=== PATIENT | female | born 1980 | race Caucasian/White ===

== ENCOUNTER → 2016-12-21 | Outpatient (REF) | payer OTHER ==
[~2016-12-21] MED LIST: IBUP200C PO; MOM30SS PO; PRENATAL VITAMIN PO
== END ==
LOC: M LAB REF 10:02
PROVIDERS: ATTEND Advanced Practice Midwife
DX: Z12.4 Encounter for screening for malignant neoplasm of cervix (principal); R87.610 Atypical squamous cells of undetermined significance on cytologic smear of cervix (ASC-US)

== ENCOUNTER → 2018-11-06 | Outpatient (REF) | payer OTHER ==
[~2018-11-06] MED LIST changes: -IBUP200C PO; +IBUP200C25 PO
[2018-11-08 14:14] LABS: HPV HYBRID CAPTURE II Negative (Negative)
== END ==
LOC: M LAB REF 13:07
PROVIDERS: ATTEND Advanced Practice Midwife
DX: Z12.4 Encounter for screening for malignant neoplasm of cervix (principal); Z11.51 Encounter for screening for human papillomavirus (HPV)
CPT/HCPCS: 87624; G0123

== ENCOUNTER → 2021-05-15 | Outpatient (CLI) | payer OTHER | LOC: M LAB 01:58 | PROVIDERS: ATTEND Family Medicine | DX: U07.1 COVID-19 (principal) ==

== ENCOUNTER → 2022-01-26 | Outpatient (REF) | payer BC | LOC: M SFHCWAGY 13:17 | PROVIDERS: ATTEND Specialist | DX: Z01.419 Encounter for gynecological examination (general) (routine) without abnormal findings (principal); Z77.9 Other contact with and (suspected) exposures hazardous to health; Z12.4 Encounter for screening for malignant neoplasm of cervix ==

== ENCOUNTER → 2023-06-09 | Outpatient (REF) | LOC: M EMP 21:39 | PROVIDERS: ATTEND Family Medicine | DX: Z11.52 Encounter for screening for COVID-19 (principal) ==

== ENCOUNTER 2023-10-17 12:22 | Emergency (ER) | payer BC ==
[2023-10-17 12:56] VITALS: BP 153/95; O2SAT 100
[2023-10-17] MEDS ORDERED: ISOVUE-370 76% 100ML VIAL As Ordered ONE (13:02)
[2023-10-17] MEDS ORDERED: MECL-86 PO (13:04)
[2023-10-17 13:11] LABS: BASO # 0.1 10^3/uL (0.0-0.2); BASO % 0.7 % (0.0-1.0); EOS # 0.1 10^3/uL (0.0-0.5); EOS % 1.6 % (0.0-3.0); HEMATOCRIT 44.5 % (36.0-47.0); HEMOGLOBIN 14.2 g/dl (12.0-15.5); LYMPH # 2.7 10^3/uL (1.5-5.0); MEAN CORPUSCULAR HEMOGLOBIN 26.5 pg (27.0-33.0); MEAN CORPUSCULAR HGB CONC 31.9 g/dl (32.0-36.5); MEAN CORPUSCULAR VOLUME 83.2 fl (80.0-96.0); MONO # 0.6 10^3/uL (0.0-0.8); MONO % 7.5 % (2.0-8.0); NEUTROPHILS % 58.7 % (36.0-66.0); PLATELET COUNT, AUTOMATED 360 10^3/uL (150-450); RED BLOOD COUNT 5.35 10^6/uL (4.00-5.40); WHITE BLOOD COUNT 8.6 10^3/uL (4.0-10.0)
[2023-10-17 13:15] VITALS: BP 170/88; TEMP 97.9; O2SAT 100
[2023-10-17 13:23] LABS: INR 1.08; PROTHROMBIN TIME 13.7 SECONDS (12.5-14.5)
[2023-10-17 13:43] LABS: CK-MB VALUE MASS < 1.0 NG/ML (<3.6)
[2023-10-17 13:44] LABS: CPK CREATINE PHOSPHOKINASE 74 U/L (34-145); MB/CK RELATIVE INDEX 1.35 (< OR =4)
[2023-10-17] MEDS: NS 1,000 ML IV ONE (14:02)
[2023-10-17 18:45] VITALS: TEMP 97
[2023-10-17 19:00] VITALS: BP 140/91; O2SAT 100
[2023-10-17] MEDS ORDERED: CHLO125TA PO (19:08)
[2023-10-17 20:02] LABS: VITAMIN B12 LEVEL 290 PG/ML (211-911)
[2023-10-20] MEDS ORDERED: [UNRECOGNIZED DRUG - OTHER] (16:24)
== END 2023-10-17 19:19 | disposition home or self-care (01) ==
LOC: M ED 12:22
DX: R42 Dizziness and giddiness (principal); I10 Essential (primary) hypertension; R20.2 Paresthesia of skin; I45.10 Unspecified right bundle-branch block; Z79.1 Long term (current) use of non-steroidal anti-inflammatories (NSAID); Z79.899 Other long term (current) drug therapy
CPT/HCPCS: 70450; 70496; 70498; 70551; 80047; 82550; 82553; 82607; 84484; 84702; 85025; 85610; 85730; 93005; 94760; 96360; 96361; 99285; Q9967

== ENCOUNTER → 2024-03-04 | Outpatient (REF) ==
[~2024-03-04] MED LIST changes: +CHLO125TA PO; +MECL-86 PO; +[UNRECOGNIZED DRUG - OTHER]
== END ==
LOC: M EMP 08:03
PROVIDERS: ATTEND Family Medicine
DX: Z11.52 Encounter for screening for COVID-19 (principal)

== ENCOUNTER → 2025-03-27 | Outpatient (REF) ==
[~2025-03-27] MED LIST changes: +IBUP-1022 PO; +PRENTAB53 PO
== END ==
LOC: M EMP 08:09
PROVIDERS: ATTEND Family Medicine
DX: Z20.822 Contact with and (suspected) exposure to COVID-19 (principal)